=== PATIENT | female | born 2005 | race American Indian/Alaskan Native ===

== ENCOUNTER 2023-12-13 03:07 | Emergency (ER) | payer SELFPAY ==
[2023-12-13] MEDS: Ibuprofen 400 MG Tab PO ONE (03:44)
[2023-12-13] MEDS: Acetaminophen 325 MG Tab PO ONE (03:44)
== END 2023-12-13 05:04 | disposition home or self-care (01) ==
LOC: MW.ED 03:07
DX: S00.531A Contusion of lip, initial encounter (principal); Z75.8 Other problems related to medical facilities and other health care; Y04.0XXA Assault by unarmed brawl or fight, initial encounter; Y93.89 Activity, other specified
CPT/HCPCS: 99284; A9270; 99283

== ENCOUNTER 2024-03-31 03:43 | Emergency (ER) | payer SELFPAY | END 2024-03-31 03:47 | disposition left against medical advice (07) | LOC: MW.ED 03:43 | DX: Z53.21 Procedure and treatment not carried out due to patient leaving prior to being seen by health care provider (principal) ==

== ENCOUNTER 2024-09-28 13:30 | Emergency (ER) | payer SELFPAY ==
[2024-09-28 15:02] LABS: BASOPHILS ABSOLUTE AUTO 0.04 K/uL (0.00-0.20); BASOPHILS PERCENT AUTO 0.3 % (0.0-1.0); EOSINOPHILS ABSOLUTE AUTO 0.01 K/uL (0.00-0.45); EOSINOPHILS PERCENT AUTO 0.1 % (0.0-6.0); HEMATOCRIT 34.6 % (37.0-47.0); HEMOGLOBIN 11.4 g/dL (12.0-16.0); IMMATURE GRAN ABSOLUTE AUTO 0.02 K/uL (0.00-0.05); IMMATURE GRAN PERCENT AUTO 0.2 % (0.0-0.4); LYMPHOCYTES ABSOLUTE AUTO 1.45 K/uL (1.00-4.80); LYMPHOCYTES PERCENT AUTO 12.7 % (24.0-44.0); MEAN CORPUSCULAR HEMOGLOBIN 27.1 pg (28.0-32.0); MEAN CORPUSCULAR HGB CONC 32.9 g/dL (32.0-36.0); MEAN CORPUSCULAR VOLUME 82.4 fL (83.0-99.0); MEAN PLATELET VOLUME 11.1 fL (9.4-12.3); MONOCYTES ABSOLUTE AUTO 0.63 K/uL (0.00-0.80); MONOCYTES PERCENT AUTO 5.5 % (0.0-8.0); NEUTROPHILS ABSOLUTE AUTO 9.28 K/uL (1.80-7.70); NEUTROPHILS PERCENT AUTO 81.2 % (41.0-71.0); PLATELET COUNT,PLT 246 K/uL (150-400); WHITE BLOOD CELL COUNT,WBC 11.43 K/uL (3.9-11.3)
[2024-09-28 15:52] LABS: A/G RATIO 0.9 (0.9-1.6); ACETAMINOPHEN <2.0 ug/mL; ALANINE AMINOTRANSFERASE,ALT 20 IU/L (14-63); ALBUMIN 3.8 g/dL (3.4-5.0); ALKALINE PHOSPHATASE 53 U/L (46-116); ASPARTATE AMNIOTRANSFERASE,AST 12 IU/L (15-37); BILIRUBIN TOTAL 0.3 mg/dL (0.2-1.0); BLOOD UREA NITROGEN,BUN 7 mg/dL (7.0-18.0); CALCIUM 9.2 mg/dL (8.5-10.1); CHLORIDE,CL 104 mmol/L (98-107); CREATININE 0.7 mg/dL (0.6-1.0); EST CRCL DRUG DOSING (CG) 96.74 mL/min; ETHANOL BLOOD MEDICAL 4 mg/dL; GLUCOSE RANDOM 95 mg/dL (74-106); POTASSIUM,K 3.6 mmol/L (3.5-5.1); PROTEIN TOTAL,TP 7.9 g/dL (6.4-8.2); SALICYLATE 0.7 mg/dL (0.0-20.0); SODIUM,NA 138 mmol/L (136-145); TSH ULTRASENSITIVE 0.44 uIU/mL (0.36-3.74)
[2024-09-28 16:18] LABS: ESTIMATED GFR 127 mL/min (>60)
[2024-09-28 16:38] LABS: APPEARANCE,URINE CLEAR; COLOR,URINE YELLOW; GLUCOSE,URINE NEGATIVE (NEGATIVE); KETONES,URINE >=80 mg/dL (NEGATIVE); LEUKOCYTE ESTERASE,URINE NEGATIVE (NEGATIVE); NITRITE,URINE NEGATIVE (NEGATIVE); OCCULT BLOOD,URINE NEGATIVE (NEGATIVE); PROTEIN,URINE NEGATIVE (NEGATIVE); UROBILINOGEN,URINE 0.2 EU/dL (<2.0)
[2024-09-28 16:45] LABS: BILIRUBIN,URINE SMALL (NEGATIVE)
[2024-09-28 16:47] LABS: AMPHETAMINES SCREEN, URINE NEGATIVE (CUTOFF=500); BARBITURATE SCREEN,URINE NEGATIVE (CUTOFF=200); BENZODIAZEPINES SCREEN,URINE NEGATIVE (CUTOFF=150); BUPRENORPHINE SCREEN,URINE NEGATIVE (CUTOFF=10); METHADONE SCREEN, URINE NEGATIVE (CUTOFF=200); METHAMPHETAMINES SCREEN, URINE NEGATIVE (CUTOFF=500); OXYCODONE SCREEN,URINE NEGATIVE (CUT0FF=100); PCP SCREEN,URINE NEGATIVE (CUTOFF=25); THC SCREEN,URINE 20 NG/ML NEGATIVE (CUTOFF=50)
[2024-09-28 17:17] LABS: BACTERIA,URINE RARE (NEGATIVE); EPITHELIAL CELLS,URINE RARE (NONE-FEW); RBC,URINE 0-1 (0-2/HPF); WBC,URINE 0-1 (0-5/HPF)
== END 2024-09-28 18:17 | disposition home or self-care (01) ==
LOC: MW.ED 13:30
DX: O99.891 Other specified diseases and conditions complicating pregnancy (principal); R45.851 Suicidal ideations; R45.89 Other symptoms and signs involving emotional state; Z75.8 Other problems related to medical facilities and other health care; Z3A.11 11 weeks gestation of pregnancy
CPT/HCPCS: 36415; 80053; 80143; 80179; 80305; 80307; 81001; 83735; 84443; 84702; 85025; 99283; 99285

== ENCOUNTER 2025-03-28 05:56 | Inpatient (IN) | payer MEDICAID ==
[2025-03-28] MEDS ORDERED: ePHEDrine 50 MG/ML SDV IVPUSH PRN (11:22)
[2025-03-28] MEDS ORDERED: dexmedeTOMIDine HCl 200 MCG/2 ML SDV EPIDUR SCH (11:30)
[2025-03-28] MEDS ORDERED: Carboprost Tromethamine 250 MCG/1 mL Vial IM PRN (11:44)
[2025-03-28] MEDS ORDERED: Sodium Chloride 0.9% 2.5 ML Syringe FLUSH PRN (11:44)
[2025-03-28] MEDS ORDERED: Sodium Chloride 0.9% 10 ML Syringe FLUSH PRN (11:44)
[2025-03-28] MEDS ORDERED: Water For Irrigation,Sterile 1,000 ML Container IRR PRN (11:44)
[2025-03-28] MEDS: Lactated Ringers 1,000 ML IV SCH (12:35)
[2025-03-28 13:48] LABS: MEAN PLATELET VOLUME 11.1 fL (9.4-12.3); NRBC ABSOLUTE 0.02 K/uL (0.00-0.02); NRBC PERCENT 0.1 /100WBC (0.0-0.2); PLATELET COUNT,PLT 392 K/uL (150-400); RED BLOOD CELL COUNT 4.09 M/uL (4.10-5.30); WHITE BLOOD CELL COUNT,WBC 18.31 K/uL (3.9-11.3)
[2025-03-28] MEDS: Butorphanol 1 MG/ML SDV IVPUSH PRN (19:02)
[2025-03-28] MEDS: Ropivacaine HCl/PF 400 MG in Premix Bag 1 BAG EPIDUR SCH (19:52)
[2025-03-29] MEDS: Oxytocin/0.9 % Sodium Chloride 30 UNIT/500 ML BAG IV SCH (02:21)
[2025-03-29] MEDS ORDERED: Aluminum Hydroxide/Magnesium Hydroxide/Simethicone Susp 30 ML Cup PO PRN (02:43)
[2025-03-29] MEDS ORDERED: Ondansetron 4 MG/2 ML SDV IVPUSH PRN (02:43)
[2025-03-29 03:40] LABS: PH,UMBILICAL ARTERIAL 7.32 (7.18-7.38); PH,UMBILICAL VENOUS 7.31 (7.25-7.45)
[2025-03-29] MEDS: Witch Hazel Medicated Pads 40/Jar TOP PRN (04:08)
[2025-03-29] MEDS: Lanolin 100% Cream 7 GM Tube TOP PRN (04:09)
[2025-03-29] MEDS: Benzocaine/Menthol 20%-0.5% Spray 78 GM Cannister TOP PRN (04:09)
[2025-03-29 05:55] LABS: MEAN PLATELET VOLUME 10.6 fL (9.4-12.3); NRBC ABSOLUTE 0.00 K/uL (0.00-0.02); NRBC PERCENT 0.0 /100WBC (0.0-0.2); PLATELET COUNT,PLT 339 K/uL (150-400); RED BLOOD CELL COUNT 3.75 M/uL (4.10-5.30); WHITE BLOOD CELL COUNT,WBC 24.86 K/uL (3.9-11.3)
[2025-03-29 06:18] LABS: LYMPHOCYTES ABSOLUTE MAN 0.50 K/uL (1.00-4.80); LYMPHOCYTES PERCENT MAN 2 % (24-44); MONOCYTES ABSOLUTE MAN 1.99 K/uL (0.00-0.80); MONOCYTES PERCENT MAN 8 % (0-8); SEG NEUTROPHILS ABSOLUTE MAN 22.37 K/uL (1.80-7.70); SEG NEUTROPHILS PERCENT MAN 90 % (41-71)
[2025-03-29] MEDS: Lactated Ringers 1,000 ML IV ONE (07:23)
[2025-03-29] MEDS: Sodium Ferric Gluconate Cmplex 125 MG in Sodium Chloride 0.9% 100 ML IV SCH (10:03)
== END 2025-03-31 20:20 | disposition home or self-care (01) | DRG 807 ==
LOC: MW.OBCHECK 05:56 → MW.OB 06:01 → MW.OBCHECK 12:02 → MW.OB 12:03 → OBSVTOIN 03-29 02:18 → MW.OB 03-29 06:00
PROVIDERS: ADMIT Obstetrics & Gynecology; ATTEND Obstetrics & Gynecology
PROC: 10E0XZZ Delivery of Products of Conception, External Approach (ICD-10-PCS; principal; 2025-03-29)
PROC: 0HQ9XZZ Repair Perineum Skin, External Approach (ICD-10-PCS; 2025-03-29)
PROC: 3E0R3BZ Introduction of Anesthetic Agent into Spinal Canal, Percutaneous Approach (ICD-10-PCS; 2025-03-29)
PROC: 00HU33Z Insertion of Infusion Device into Spinal Canal, Percutaneous Approach (ICD-10-PCS; 2025-03-29)
DX: O42.02 Full-term premature rupture of membranes, onset of labor within 24 hours of rupture (principal); Z37.0 Single live birth; O99.824 Streptococcus B carrier state complicating childbirth; O99.02 Anemia complicating childbirth; O99.344 Other mental disorders complicating childbirth; F32.A Depression, unspecified; O36.5930 Maternal care for other known or suspected poor fetal growth, third trimester, not applicable or unspecified; Z3A.37 37 weeks gestation of pregnancy
CPT/HCPCS: 01967; 36415; 51702; 59025; 59409; 76805; 76805-26; 82803; 85025; 85027; 86592; 86850; 86900; 86901; A9270-GY; J0290; J0595; J2371; J2590; J2795; J2916; J7120

== ENCOUNTER 2025-07-08 17:25 | Emergency (ER) | payer MEDICAID ==
[2025-07-08] MEDS ORDERED: Sodium Chloride 0.9% 2.5 ML Syringe FLUSH PRN (18:08)
[2025-07-08] MEDS ORDERED: Sodium Chloride 0.9% 10 ML Syringe FLUSH PRN (18:08)
[2025-07-08] MEDS: Ondansetron 4 MG/2 ML SDV IVPUSH ONE (18:16)
[2025-07-08] MEDS: Ketorolac 30 MG/ML SDV IVPUSH ONE (18:16)
[2025-07-08 18:17] LABS: BASOPHILS ABSOLUTE AUTO 0.03 K/uL (0.00-0.20); BASOPHILS PERCENT AUTO 0.4 % (0.0-1.0); EOSINOPHILS ABSOLUTE AUTO 0.02 K/uL (0.00-0.45); EOSINOPHILS PERCENT AUTO 0.2 % (0.0-6.0); IMMATURE GRAN ABSOLUTE AUTO 0.03 K/uL (0.00-0.05); IMMATURE GRAN PERCENT AUTO 0.4 % (0.0-0.4); LYMPHOCYTES ABSOLUTE AUTO 0.36 K/uL (1.00-4.80); LYMPHOCYTES PERCENT AUTO 4.3 % (24.0-44.0); MEAN PLATELET VOLUME 10.3 fL (9.4-12.3); MONOCYTES ABSOLUTE AUTO 0.77 K/uL (0.00-0.80); MONOCYTES PERCENT AUTO 9.2 % (0.0-8.0); NEUTROPHILS ABSOLUTE AUTO 7.20 K/uL (1.80-7.70); NEUTROPHILS PERCENT AUTO 85.5 % (41.0-71.0); NRBC ABSOLUTE 0.00 K/uL (0.00-0.02); NRBC PERCENT 0.0 /100WBC (0.0-0.2); PLATELET COUNT,PLT 234 K/uL (150-400); RED BLOOD CELL COUNT 4.65 M/uL (4.10-5.30); WHITE BLOOD CELL COUNT,WBC 8.41 K/uL (3.9-11.3)
[2025-07-08] MEDS: Iopamidol 755 MG/ML 500 ML Multipack Bottle IVPUSH STA (18:28)
[2025-07-08 18:42] LABS: A/G RATIO 1.0 (0.9-1.6); ALANINE AMINOTRANSFERASE,ALT 102 IU/L (14-63); ASPARTATE AMNIOTRANSFERASE,AST 61 IU/L (15-37); BILIRUBIN TOTAL 0.3 mg/dL (0.2-1.0); BLOOD UREA NITROGEN,BUN 10 mg/dL (7.0-18.0); CARBON DIOXIDE,CO2 21.2 mmol/L (21.0-32.0); CHLORIDE,CL 104 mmol/L (98-107); CREATININE 0.9 mg/dL (0.6-1.0); GLUCOSE RANDOM 112 mg/dL (74-106); POTASSIUM,K 3.8 mmol/L (3.5-5.1); PROTEIN TOTAL,TP 8.8 g/dL (6.4-8.2); SODIUM,NA 137 mmol/L (136-145)
[2025-07-08 18:49] LABS: ESTIMATED GFR 93 mL/min (>60)
[2025-07-08 19:53] LABS: APPEARANCE,URINE CLEAR; GLUCOSE,URINE NEGATIVE (NEGATIVE); OCCULT BLOOD,URINE NEGATIVE (NEGATIVE)
== END 2025-07-08 20:18 | disposition home or self-care (01) ==
LOC: MW.ED 17:25
DX: J10.1 Influenza due to other identified influenza virus with other respiratory manifestations (principal); R10.31 Right lower quadrant pain
CPT/HCPCS: 36415; 74177; 80053; 81003; 83690; 85025; 87428; 96361; 96374; 96375; 99284; A9270; J1885; J2405; J7030; Q9967; 99283